=== PATIENT | male | born 1980 | race Asian ===

== ENCOUNTER 2021-06-12 18:15 | Emergency (ER) | payer OTHER ==
[~2021-06-12] VITALS: Ht 182.9 cm; Wt 88.6 kg
[2021-06-12] MEDS ORDERED: KETOROLAC TROMETHAMINE 60 MG/2 ML VIAL IM ONE (18:30)
[2021-06-12] MEDS ORDERED: HYDROCODONE/APAP 5MG-325MG TAB PO ONE (18:30)
[2021-06-12] MEDS ORDERED: ONDANSETRON HCL 4 MG ORAL DISINTEGRATING TAB PO ONE (18:30)
[2021-06-12] MEDS ORDERED: ULTRAM 50MG50 MG PO (19:31)
[2021-06-12] MEDS ORDERED: IBUPROFEN IB200 MG PO (19:31)
[2021-06-12] MEDS ORDERED: ACETAMINOPHEN500 MG PO (19:31)
== END 2021-06-12 19:45 | disposition home or self-care (01) ==
LOC: FSED 18:21
DX: M54.50 Low back pain, unspecified (principal); S32.019A Unspecified fracture of first lumbar vertebra, initial encounter for closed fracture; W22.03XA Walked into furniture, initial encounter; Y92.89 Other specified places as the place of occurrence of the external cause
CPT/HCPCS: 72131; 96372; 99283; J1885; Q0162